=== PATIENT | male | born 1955 | race Caucasian/White ===

== ENCOUNTER 2016-07-24 20:38 | Emergency (ER) | payer OTHER ==
[~2016-07-24] VITALS: Ht 188 cm; Wt 113.6 kg
[2016-07-24 20:52] VITALS: BP 190/104; PULSE 91; RESP 18; O2SAT 94
--- NOTE | 2016-07-24 22:53 | ED.REPORT ---
HPI-Extremity Problem Upper Date of Service Jul 24, 2016 ED Provider: Bobby Pace MD A healthy 60 year old male presents to the ED with a laceration to his right hand onset just prior to arrival. The patient was walking when he experienced a mechanical ground level fall, landing hard with his hand on a ladder he was carrying. The patient denies hitting his head or other injury/trauma from the fall. Nursing Notes Stated Complaint: RT HAND CUT OPEN Chief Complaint: Laceration Nursing Notes Reviewed: Yes Allergies: Coded Allergies: No Known Allergies (Unverified , 07/24/16) General Time Seen by MD: 22:16 Chief Complaint Hand injury right Hx Obtained From: Patient Arrived By: Walk-in Onset Occurred: Just prior to arrival Symptom Duration: Since onset Caused by: Accidental, Fall on ground Location: : Hand right Quality: Painful Severity: Current: Moderate Severity: Maximum: Moderate Associated with: Denies: Fever Pertinent Negative: Relieved by nothing Immunizations: Unknown Recent Healthcare: No recent doctor visit Past Medical History Past Medical History None reported Past Surgical History None reported Smoking History Unknown if Ever Smoker Ambulatory Status Independent Review of Systems Review of Systems Note: + Laceration to right hand Constitutional: Denies: Fever Musculoskeletal: Reports: Extremity pain (Right hand), Denies: Back pain, Joint pain, Lumbar pain, Neck pain Neurologic: Denies: Headache Complete sys rev & neg: except as marked. Respiratory: Denies: Non-productive cough, Shortness of breath GI: Denies: Diarrhea, Vomiting Physical Exam Initial Vital Signs Vital Signs (First) Date Time Temp Pulse Resp B/P Pulse Ox O2 Delivery O2 Flow Rate FiO2 07/24/16 20:52 36.6 91 18 190/104 94 Room Air Initial VS: Reviewed Head / Eyes: Atraumatic, Normocephalic ENT: Conjunctiva normal, No scleral icterus Neck: Supple, Full range of motion Respiratory: No respiratory distress Skin: Warm, Dry, No cyanosis Neurologic: Alert, Oriented, Nonfocal Psychiatric: Mood/affect normal, Behavior normal, Normal thought content General/Constitutional: Awake, Alert, No acute distress Wrist / Hand: Neurologic intact, Vascular intact Trauma / Burn / Environmental: Positive: Laceration (To right palmar web space between index and thumb) Procedures Laceration Management Laceration Management: Splint placed to immobilize thumb Time: 00:05 Procedure Performed by: ED physician Consent / Setup / Site Prep: Consent from patient, Time-out performed, Hand hygiene observed, Stand sterile technique Location of Wound: V-flap laceration into subcutaneous fat of right hand palmar web space between index and thumb No tendon involvement, No neuro/vascular involvement Wound Length: 5 cm Local Anesthesia: Lidocaine 1% Wound Preparation: Hibiclens - Chlorhexidine Irrigation: Copious (500 mL) Foreign Body Explore / Removal: Explored for foreign body Repair Skin: ___ O (4), Nylon # Sutures - Skin: 1 (Mattress), 10 (Simple) Suture Technique: Simple, Mattress Post-Procedure / Complications: Antibiotic oint applied, Dressing applied, No complications, Condition improved, Tolerated procedure well, Patient stable Re-Eval/Medical Decision Med Decision/Clinical Course 60-year-old presents with laceration to the web of his thumb. This was repaired as detailed above. Placed in splint. Plan suture removal in ten days. Re-Evaluation/Progress #1: Time of Eval: 00:05 Patient Status: Condition improved Re-Evaluation/Progress Note: Laceration management performed. Re-Evaluation/Progress #2: Time of Eval: 01:37 Patient Status: Condition improved Re-Evaluation/Progress Note: Discussed with patient diagnosis and plan for discharge. Follow-up and return to the ER instructions given. Patient agrees with plan for care and all questions were addressed. Counseled Regarding: Diagnosis, Need for follow-up, When/why to return to ED Discharge & Departure Shift Change Sign-Out Response to Therapy: Improved Impression: Primary Impression: Laceration Disposition: Home Discharge Condition All VS Reviewed: Yes Condition: Improved Patient Instructions: Laceration (ED) Additional Instructions: Return here for suture removal in ten days. Wear the splint at least three day seven. Bacitracin dressing and then reapply splints three times daily to prevent crusting and scabbing. Return sooner if any signs of infection. Follow up with your doctor if needed. Referrals: [facility] Alan Attestation Portions of this note were transcribed by Minerva Donovan. I, Dr. Pace, personally performed the history, physical exam, and medical decision-making; I reviewed and confirmed the accuracy of the information in the transcribed note. Signed by: Alan Owusu, 07/25/2016, 02:05 copies to: [facility] Christopher W MD Jul 24, 2016 22:53 MINERVA DONOVAN Jul 24, 2016 22:56
[2016-07-25 01:02] VITALS: BP 156/87; PULSE 74; O2SAT 95
[2016-07-25] MEDS ORDERED: TdaP Vaccine 0.5 mL Inj IM ONE (01:35)
[2016-07-25 01:40] VITALS: BP 156/87; PULSE 74; RESP 18; O2SAT 95
== END 2016-07-25 01:40 | disposition home or self-care (01) ==
LOC: SED 20:38
DX: S61.411A Laceration without foreign body of right hand, initial encounter (principal); W01.198A Fall on same level from slipping, tripping and stumbling with subsequent striking against other object, initial encounter; Y93.01 Activity, walking, marching and hiking; Y92.9 Unspecified place or not applicable; Y99.8 Other external cause status; Z23 Encounter for immunization